=== PATIENT | female | born 1990 | race Caucasian/White ===

== ENCOUNTER 2024-11-02 17:35 | Emergency (ER) | payer OTHER, SELFPAY ==
[2024-11-02 17:37] VITALS: BP 173/112
[2024-11-02 17:52] LABS: % Basophils 0.6 % (0-2); % Eosinophils 2.1 % (0-6); % Immature Granulocytes 0.3 % (0-0.5); % Lymphocytes 30.9 % (20.5-51.1); % Monocytes 6.3 % (1.7-9.3); % Neutrophils 59.8 % (42.2-75.2); Absolute Eosinophils 0.2 10^3/uL (0-0.7); Absolute Lymphocytes 2.3 10^3/uL (1.2-3.4); Absolute Monocytes 0.5 10^3/uL (0.1-0.6); Absolute Neutrophils 4.4 10^3/uL (1.4-6.5); Hematocrit 36.6 % (37.0-47.0); Hemoglobin 12.8 g/dL (12.0-16.0); Mean Corpuscular Volume 91.5 fL (81.0-99.0); Mean Platelet Volume 10.1 fL (7.4-10.4); Nucleated Red Blood Cells % 0 %; Platelet Count 232 10^3/uL (130-400); Red Cell Dist. Width 12.5 % (11.5-14.5); White Blood Cell Count 7.3 10^3/uL (4.8-10.8)
[2024-11-02 18:06] LABS: HCG, Serum Qualitative Screen Negative
[2024-11-02 18:11] LABS: ALT (SGPT) 24 U/L (0-35); AST (SGOT) 23 U/L (14-36); Albumin 4.8 g/dl (3.5-5.0); Alkaline Phosphatase 45 U/L (38-126); Blood Urea Nitrogen 17 mg/dl (7-17); Calcium 9.6 mg/dl (8.4-10.2); Carbon Dioxide 21 mmol/L (22-30); Chloride 109 mmol/L (98-107); Glucose 99 mg/dl (70-99); Potassium 3.9 mmol/L (3.5-5.1); Sodium 139 mmol/L (135-145); Total Bilirubin 0.6 mg/dl (0.2-1.3); Total Protein 7.8 g/dl (6.3-8.2); eGFR > 60.00
[2024-11-02 19:26] VITALS: BP 139/87
[2024-11-02 19:33] VITALS: BMI 26.2
[2024-11-02 20:00] VITALS: BP 142/97
[2024-11-02 22:00] VITALS: BP 131/85
--- NOTE | 2024-11-02 22:37 | ED.GENMED ---
History of Present Illness
General
Chief Complaint: Blood Pressure Problem
Source: patient and previous hospital records (ED visit 2021 for somewhat similar complaint.)
Exam Limitations: none
Time Seen by Provider: 11/02/24 22:00
Nursing documentation reviewed up to this point in time: agreed with
History of Present Illness
History of Present Illness:
This is a 34-year-old woman who has no significant past medical history save for an episode of preeclampsia 2021 that developed immediately and persisted for a few weeks. Evaluated in this ED a few days with similar complaints
of right orbital discomfort accompanied with elevated blood pressure. Was treated with a short course of Procardia. She has had no return of symptoms until more recently, 5 days ago she developed similar orbital discomfort. Patient assumed this
was related to Aygestin that she began taking 10 days prior as she is currently undergoing initial evaluation with infertility specialist. With onset of right orbital discomfort 5 days ago patient immediately stopped the Aygestin.
Despite stopping this, she has had sporadic right orbital discomfort thus called her PCP and schedule an appointment for Saturday, in 2 days time. This evening she decided to check her blood pressure and was alarmed when her blood pressure was
elevated at 160 systolic and with repeated monitoring of her blood pressure it continued to rise to 170. She denies vision difficulty, no headache, no nasal congestion, no ear pain, no sore throat, no fever nor chills. No chest pain nor cough no
shortness of breath. She has had brief intermittent palpitations generally not associated with eye discomfort. She denies weakness nor numbness. She also noted brief dizziness tonight which prompted her to check her blood pressure.
She stopped the Aygestin 5 days ago. Other than this she takes no medicines on a daily basis.
She did begin spotting today. Her last menstrual period was 2 weeks ago.
She also admits to consuming a fair amount of high sodium foods and admits to drinking alcohol this past weekend. Denies daily nor frequent alcohol use.
Past History
Past History
ED Past Medical History: Other (Gestational hypertension)
ED Past Surgical History: None
Social History
Tobacco: Non-smoker
Alcohol: Occasional
Drug: None
Personal:
Living: with family
Employment: Employed
Family History
Family History: Other (Noncontributory)
Phy Exam
Physical Exam
Physical Exam:
GENERAL: 34-year-old woman appears her stated age, bright and alert, pleasant, appears in no acute distress.
EYE: pupils equal and reactive. Extraocular muscles intact. Discs are sharp bilaterally. No periorbital edema nor tenderness to palpation. Anicteric
NECK: Supple, nontender, no meningismus, no significant adenopathy.
ENT: posterior pharynx is clear, oral mucosa is moist. TM clear b/l, nares have moderately boggy pale blue turbinates without rhinorrhea
CARDIAC: Regular rate and rhythm. no murmur.
LUNGS: Clear breath sounds bilaterally, no acute respiratory distress, no wheezes/rales/rhonchi
ABDOMEN: Soft, nondistended, without focal tenderness, no r/g, no cvat. normoactive BS.
NEUROLOGICAL: Alert and oriented x3, no focal neuro deficits. Gait is chapman and steady.
SKIN: Warm and dry, normal color, skin intact. No rash.
MUSCULOSKELETAL: No C/C/E. peripheral pulses are full and equal b/l. No palpable tenderness.
PSYCH: Normal and appropriate interaction.
Course
Orders/Labs/Results
Orders:
Orders
11/02/24 17:40
Electrocardiogram (*1) Urgent
Reason for Study: Hypertension, Benign
EKG- Treatment ONCE
Test Result ONCE
11/02/24 17:46
Complete Blood Count/With Diff Urgent
Comprehensive Metabolic Panel Urgent
HCG, Serum Qualitative Screen Urgent
Abnormal Lab Results
11/02/24
17:46
RBC 4.00 L 10^6/uL
(4.20-5.40)
Hct 36.6 L %
(37.0-47.0)
MCH 32.0 H pg
(27.0-31.0)
Chloride 109 H mmol/L
(98-107)
Carbon Dioxide 21 L mmol/L
(22-30)
11/02/24 17:46
11/02/24 17:46
Vital Signs
Initial and Last Documented VS:
Initial Vital Signs
Temp Pulse Resp BP Pulse Ox
97.4 F 103 16 173/112 100
11/02/24 17:37 11/02/24 17:37 11/02/24 17:37 11/02/24 17:37 11/02/24 17:37
Last Documented Vital Signs
Temp Pulse Resp BP Pulse Ox
97.4 F 70 18 131/85 97
11/02/24 17:37 11/02/24 22:42 11/02/24 22:42 11/02/24 22:00 11/02/24 22:51
MDM/Problems Addressed
Differential Diagnosis Includes:
Patient presents with elevated blood pressure tonight. Has had several day history of intermittent right orbital discomfort.
Similar complaint noted 2021 when she presented with preeclampsia.
Concern for hypertension related periorbital headache, concern for migraine headache, seasonal allergies/sinus headache. As symptoms have been sporadic, overall mild in nature, aneurysm/CVA are unlikely.
Moderately elevated blood pressure initially has normalized without intervention.
Labs are unremarkable as is EKG.
Considered CT of the head however patient is currently comfortable and pain-free. No focal neurodeficits. Discs are sharp bilaterally. No vision difficulty.
Patient feels comfortable being discharged to home. Will hold off on CTA. She has an appointment scheduled with her PCP in 2 days time.
Elevated blood pressure in orbital discomfort could certainly be associated with recent initiation of Aygestin thus I agree that she continue to hold the Aygestin.
Have also recommended that she avoid high sodium foods, avoid added salt and avoid alcohol consumption as these can all elevate blood pressure as well.
Chronic conditions affecting care: Other (Episode of preeclampsia 2021)
*Pulse Oximetry
SaO2: 97
Oxygen Mode of Delivery: Room air
Patient hypoxic: no
*EKG
Interpreted by ED Provider?: Yes
Interpretation: normal
Comparison EKG: no comparison EKG present
Rate: normal
Rhythm: sinus
[place]: normal axis
Interval: normal interval
QRS Pattern: normal QRS
Ischemia: no ischemia
*Critical Care Note
Total Time (30-74mins, 75-104mins- exclusive of procedures): Not Applicable
ED Attending Note
-
Portions of this chart may have been created with voice recognition software.� Occasional wrong word or��sound alike� substitutions may have occurred due to the inherent limitations of voice recognition software.
Discharge Plan
Departure
Patient Disposition: Home (Routine Discharge)
Date of Disposition: 11/02/24
Time of Disposition: 22:37
Patient with high blood pressure during this ER visit?: No
Discharge Problem:
Elevated blood pressure reading without diagnosis of hypertension, Pain of right orbit, Allergic rhinitis
Instructions: Checking your blood pressure at home, Seasonal Allergies ED, Low-sodium diet
Prescriptions:
No Action
nifedipine [Procardia XL] 30 mg tablet extended release 24hr
30 mg PO DAILY Qty: 30 0RF
Referrals:
Nicholas Sanchez DO [Family Provider, Family Practice] - Keep scheduled appt
Activity Restrictions/Additional Instructions:
Continue to hold Aygestin.
Stay well-hydrated on a daily basis.
Avoid added salt as well as avoid high sodium foods.
Avoid alcoholic beverages.
Your exam is remarkable for a fair amount of bogginess of the mucous membranes/turbinates of your nose, more so on the right than left and appears to be related to seasonal allergies. If you are feeling congested, sinus pressure, you can try an
lfmy-jyn-rydlymx steroid nasal spray such as Flonase or Nasonex, 2 sprays each nostril once daily.
Follow-up with your family doctor on Saturday as already scheduled.
Interventions
Interventions:
*Risk Screen - Suicide Last Done: 11/02/24 17:40
*General Assessment Last Done: 11/02/24 19:33
*Neglect/Abuse Screening Last Done: 11/02/24 17:40
*ED- Fall Risk Assessment Last Done: 11/02/24 19:33
*ED COVID-19 Vaccine History Last Done: 11/02/24 19:33
*Nursing Disposition Last Done: 11/02/24 22:43
ED- Cardiac Assessment Last Done: 11/02/24 19:33
ED- Neurological Assessment Last Done: 11/02/24 19:33
ED- Pulmonary Assessment Last Done: 11/02/24 19:33
Discharge Date and Time
Discharge Date/Time: 11/02/24 22:46
Print Language: KOREAN
== END 2024-11-02 22:46 | disposition home or self-care (01) ==
LOC: EMR 17:35
PROVIDERS: Student in an Organized Health Care Education/Training Program; EMERGENCY PHYSICIAN Emergency Medicine; FAMILY PHYSICIAN Family Medicine
DX: H57.11 Ocular pain, right eye (principal); J30.9 Allergic rhinitis, unspecified; R03.0 Elevated blood-pressure reading, without diagnosis of hypertension
CPT/HCPCS: 99284; 80053; 84703; 85025; 93005